=== PATIENT | female | born 1995 | race Caucasian/White ===

== ENCOUNTER → 2019-02-28 | Outpatient (REF) | payer BC | LOC: M SFHCLERA 12:14 | PROVIDERS: ATTEND Nurse Practitioner Family | DX: J02.9 Acute pharyngitis, unspecified (principal) ==

== ENCOUNTER → 2020-04-04 | Outpatient (REF) | payer BC ==
[2020-04-04 14:08] LABS: HEMATOCRIT 37.8 % (36.0-47.0); HEMOGLOBIN 13.4 g/dl (12.0-15.5); MEAN CORPUSCULAR HEMOGLOBIN 32.3 pg (27.0-33.0); MEAN CORPUSCULAR HGB CONC 35.4 g/dl (32.0-36.5); MEAN CORPUSCULAR VOLUME 91.1 fl (80.0-96.0); PLATELET COUNT, AUTOMATED 287 10^3/uL (150-450); RED BLOOD COUNT 4.15 10^6/uL (4.00-5.40); WHITE BLOOD COUNT 9.9 10^3/uL (4.0-10.0)
[2020-04-04 15:24] LABS: HEPATITIS C VIRUS ABY INDEX 0.1 INDEX (<0.8); HIV 1&2 SCREEN CENTAUR NEGATIVE (NEGATIVE)
[2020-04-04 15:54] LABS: CHLAMYDIA DNA AMPLIFICATION NEGATIVE (NEGATIVE); GC DNA AMPLIFICATION NEGATIVE (NEGATIVE)
== END ==
LOC: M PLALAB 11:34
PROVIDERS: ATTEND Obstetrics & Gynecology
DX: Z34.91 Encounter for supervision of normal pregnancy, unspecified, first trimester (principal); Z3A.08 8 weeks gestation of pregnancy

== ENCOUNTER → 2020-05-09 | Outpatient (REF) | payer BC, OTHER | LOC: M SFHCWAGY 16:45 | PROVIDERS: ATTEND Obstetrics & Gynecology | DX: Z34.01 Encounter for supervision of normal first pregnancy, first trimester (principal) ==

== ENCOUNTER → 2020-05-09 | Outpatient (CLI) | payer BC, OTHER | LOC: M PLALAB 09:32 | PROVIDERS: ATTEND Obstetrics & Gynecology | DX: Z34.82 Encounter for supervision of other normal pregnancy, second trimester (principal) ==

== ENCOUNTER → 2020-06-25 | Outpatient (CLI) | payer OTHER ==
--- NOTE | 2020-06-25 10:09 | REP ---
INDICATION: ANATOMY. Known MEI 11 November 2020. Twenty weeks 1 day. COMPARISON: None. TECHNIQUE: Transabdominal obstetric sonography. FINDINGS: Scanning through the gravid uterus demonstrates a viable single intrauterine gestation in transverse lie. motion is observed and heart rate is recorded at 140 beats per minute. A fundal placenta is seen, grade 1, without evidence of placenta previa. Closed cervical length is measured at 4.2 cm transabdominally. No extrauterine abnormality is observed. Amniotic fluid is subjectively normal. No anomaly is seen. The following anatomic structures are identified and felt to be sonographically unremarkable: cranium, choroid plexus, cavum, cerebellum and posterior fossa, face and profile, lungs, diaphragm, left-sided stomach, abdominal wall cord insertion, three-vessel umbilical cord, kidneys and bladder, and upper and lower extremities. spine and four-chamber heart and outflow tract views are less than optimally achieved due to position. Biometry chart: BPD 4.7 cm, 20 weeks 2 days Head circumference 17.8 cm, 20 weeks 2 days Abdominal circumference 14.6 cm, 19 weeks 6 days Femur length 3.4 cm, 20 weeks 4 days Humeral length 3.1 cm, 20 weeks 2 days HC AC ratio normal 1.22 Cephalic index normal 0.73 Estimated weight 341 g, 0 lb 12 oz, 51st percentile for 20 weeks 1 day IMPRESSION: Viable single intrauterine gestation at 20 weeks 2 days by today's composite sonographic criteria. MEI by today's sonography 10 November 2020. No complication identified. Expected gestational age estimate based on provided known MEI 20 weeks 1 day, MEI November 11, 2020. anatomic survey limited regarding heart and spine due to position. <Electronically signed by Ron Duque > 06/25/20 [id number]
== END ==
LOC: M WHC 06:55
PROVIDERS: ATTEND Advanced Practice Midwife
DX: Z34.82 Encounter for supervision of other normal pregnancy, second trimester (principal)

== ENCOUNTER → 2020-07-29 | Outpatient (CLI) | payer OTHER ==
--- NOTE | 2020-07-29 08:14 | REP ---
INDICATION: F/U ANATOMY COMPARISON: 06/25/2020 TECHNIQUE: Transabdominal obstetrical ultrasound with color Doppler evaluation. FINDINGS: Examination demonstrates a single live intrauterine in cephalic presentation. motion is identified by technologist. Placenta is noted posterior and grade 1 without evidence for placenta previa or abruption. Amniotic fluid volume is normal. Cervix measures 3.5 cm in length and appears closed.. Selected gestational age: 25 weeks 0 days with MEI 11/11/2020. Gestational age by current measurements 25 weeks 3 days with MEI 11/08/2020. FHR equals 135 beats per minute. Estimated weight 767 grams (43rdpercentile). Anatomical assessment demonstrates normal structures including four-chamber heart/cardiac ventricular outflow tracts and spine. IMPRESSION: Single live intrauterine in cephalic presentation demonstrating appropriate interval growth. In conjunction with prior examination anatomical assessment is complete and normal. <Electronically signed by Nabil Acuna > 07/29/20 [id number]
== END ==
LOC: M WHC 07:20
PROVIDERS: ATTEND Advanced Practice Midwife
DX: Z36.89 Encounter for other specified antenatal screening (principal); Z3A.25 25 weeks gestation of pregnancy

== ENCOUNTER → 2020-08-20 | Outpatient (CLI) | payer OTHER ==
[~2020-08-20] MED LIST: PRENTAB9 PO
[2020-08-20 13:52] LABS: HEMATOCRIT 33.2 % (36.0-47.0); MEAN CORPUSCULAR HEMOGLOBIN 32.4 pg (27.0-33.0); MEAN CORPUSCULAR HGB CONC 33.1 g/dl (32.0-36.5); MEAN CORPUSCULAR VOLUME 97.9 fl (80.0-96.0); PLATELET COUNT, AUTOMATED 193 10^3/uL (150-450); RED BLOOD COUNT 3.39 10^6/uL (4.00-5.40); WHITE BLOOD COUNT 9.5 10^3/uL (4.0-10.0)
== END ==
LOC: M PLALAB 09:44
PROVIDERS: ATTEND Advanced Practice Midwife
DX: Z36.89 Encounter for other specified antenatal screening (principal); Z3A.25 25 weeks gestation of pregnancy
CPT/HCPCS: 36415; 82950; 85027; 86850; 86900; 86901; 90471; 90715; G0463; J2790

== ENCOUNTER → 2020-09-13 | Outpatient (CLI) | payer OTHER | LOC: M LAB 08:05 | PROVIDERS: ATTEND Advanced Practice Midwife | DX: Z34.93 Encounter for supervision of normal pregnancy, unspecified, third trimester (principal) ==

== ENCOUNTER 2020-10-06 16:09 | Outpatient (CLI) | payer OTHER ==
[~2020-10-06] VITALS: Ht 165.1 cm; Wt 80.4 kg
[2020-10-06 16:29] VITALS: BP 110/59
[2020-10-06] MEDS ORDERED: PRENTAB9 PO (16:35)
[2020-10-06] MEDS ORDERED: HOME MED LIST COMPLETE! XX SCH (16:40)
[2020-10-06 17:31] VITALS: BP 112/64
--- NOTE | 2020-10-06 17:38 | IPNPDOC ---
Text Note Date of Service The patient was seen on 10/06/20. NOTE Labor and Delivery Triage Note: S: 25-year-old G1 at 34 weeks 6 days presents with c/o contractions [id number] and pelvic pressure. Denies vaginal bleeding or LOF. Reports active movement. O: vss, AF no ctx Cat 1 tracing Gen: well appearing, NAD Abd: gravid, soft, nttp cx: Long/ closed A/P: 25yo G1 not in PTL reassuring status -home with PTL precautions and FKCs. -f/u at next OB appt Nuria Lindsay MD VS,Scott, I+O VS, Scott I+O Vital Signs Date Time Temp Pulse Resp B/P (MAP) Pulse Ox O2 Delivery O2 Flow Rate FiO2 10/06/20 16:29 98.2 108 16 110/59 (76) NURIA LINDSAY MD. Oct 06, 2020 17:38
== END 2020-10-06 17:39 | disposition home or self-care (01) ==
LOC: M LDO 16:09
PROVIDERS: ATTEND Obstetrics & Gynecology
DX: O26.893 Other specified pregnancy related conditions, third trimester (principal); R10.2 Pelvic and perineal pain; Z3A.34 34 weeks gestation of pregnancy
CPT/HCPCS: 59025; G0378; G0463

== ENCOUNTER → 2020-10-18 | Outpatient (REF) | payer OTHER ==
[~2020-10-18] MED LIST changes: +DOCU100C16 PO; +IBUP80TA PO; +PERC5TAB12 PO; +TUMS500C PO
== END ==
LOC: M SFHCWAGY 12:54
PROVIDERS: ATTEND Advanced Practice Midwife
DX: Z36.89 Encounter for other specified antenatal screening (principal)
CPT/HCPCS: 87081; 87186; G0463